=== PATIENT | male | born 1995 | race Hispanic/Latino ===

== ENCOUNTER 2017-09-09 11:24 | Emergency (ER) | payer OTHER, SELFPAY ==
[2017-09-09 11:34] VITALS: BP 124/68; PULSE 65; PULSE 72; RESP 18; TEMP 36.8; O2SAT 97; O2SAT 98; BMI 24.7
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
[2017-09-09 15:37] VITALS: RESP 14
== END 2017-09-09 15:37 | disposition home or self-care (01) ==
LOC: ED 13:54
PROVIDERS: Emergency Provider Emergency Medicine
DX: S40.011A Contusion of right shoulder, initial encounter (principal); W22.8XXA Striking against or struck by other objects, initial encounter; Y93.9 Activity, unspecified; Y92.9 Unspecified place or not applicable; Y99.9 Unspecified external cause status
CPT/HCPCS: 73000; 73030; 99284